=== PATIENT | female | born 1980 | race Caucasian/White ===

== ENCOUNTER 2021-06-14 08:17 | Emergency (ER) | payer OTHER ==
[~2021-06-14] VITALS: Ht 154.9 cm; Wt 47.6 kg
== END 2021-06-14 18:33 | disposition home or self-care (01) ==
LOC: ER 08:17
DX: N83.209 Unspecified ovarian cyst, unspecified side (principal); R19.07 Generalized intra-abdominal and pelvic swelling, mass and lump

== ENCOUNTER 2021-08-11 06:45 | Day surgery (SDC) | payer OTHER | END 2021-08-11 11:00 | disposition home or self-care (01) | LOC: AMB-ENDOS 06:45 | PROVIDERS: ATTEND Internal Medicine Gastroenterology | DX: K62.89 Other specified diseases of anus and rectum (principal); Z20.822 Contact with and (suspected) exposure to COVID-19 ==